=== PATIENT | female | born 1980 | race Caucasian/White ===

== ENCOUNTER 2018-09-25 02:39 | Emergency (ER) | payer OTHER ==
[2018-09-25 03:01] VITALS: BMI 30.7
--- NOTE | 2018-09-25 03:07 | PDOC ---
History of Present Illness - General Chief Complaint: Shortness of Breath Stated Complaint: LEFT NECK/SHOULDER Time Seen by Provider: 09/25/18 03:06 Past History - Past Medical History Allergies/Adverse Reactions: Allergies Allergy/AdvReac Type Severity Reaction Status Date / Time No Known Allergies Allergy Verified 09/25/18 03:00 Home Medications: Ambulatory Orders Ibuprofen [Motrin -] 600 mg PO QID PRN #28 tablet 09/25/18 Lidocaine 5% Patch [Lidoderm -] 1 patch TP DAILY PRN #10 patch 09/25/18 COPD: No - Suicide/Smoking/Psychosocial Hx Smoking History: Never smoked *Physical Exam - Vital Signs Last Vital Signs Temp Pulse Resp BP Pulse Ox 98.1 F 112 H 20 141/98 99 09/25/18 02:58 09/25/18 02:58 09/25/18 02:58 09/25/18 02:58 09/25/18 02:58 ED Treatment Course - LABORATORY CBC & Chemistry Diagram: 09/25/18 04:00 09/25/18 04:00 Medical Decision Making - Medical Decision Making 37yo F with PMH of HTN (not currently taking medicines as they ran out) presenting with neck pain and shortness of breath. Patient states she went to bed with the same neck pain but she woke up around 1:20am with worsening pain, now rated 6/10. If she moves her neck, she will feel the pain. Patient reports having trouble breathing at that time as well. Denies chest pain or cough. Endorsing some nausea. Has had normal po intake. No hemoptysis, no recent surgical history, no recent immobilization, no hormone use, no history of DVT or PE. No fevers or chills. PCP: Dr. Esquivel (patient has never seen her, however) ROS: Constitutional: no fever, no chills HEENT: no throat pain, no dysphagia Cardiovascular: no chest pain, no palpitations Respiratory: no cough, +shortness of breath Gastrointestinal: no abdominal pain, +nausea Genitourinary: no dysuria, no hematuria Musculoskeletal: +neck pain, no leg pain Skin: no rash, no itching Neurologic: no headache, no weakness PE: General: Awake, alert, and fully oriented, in no acute distress Head: No signs of trauma Eyes: EOMI, sclera anicteric ENT: Moist mucus membranes Neck: Normal ROM, supple Lungs: Lungs clear, Normal breath sounds Cardio: Regular rhythm, S1 and S2 present Abdomen: Soft, nontender. No guarding, no rebound, no masses Extremities: Normal range of motion, Distal pulses present SKIN: Warm, Dry, normal turgor Neurologic: Cranial nerves II through XII grossly intact. Normal speech Back: Tender to palpation in upper trapezius along the right, no midline neck/ spine tenderness, no step-offs/deformities/fluctuance ED Courses/MDM: DDX including but not limited to muscle strain, PNA, PE, dehydration Fluids, Toradol, Lidocaine Patch, Flexeril, Zofran Vitals significant for tachycardia EKG: rate 119, QTc 447, Sinus tachycardia 09/25/18 03:07 Patient has not yet given us a urine sample; added-on b-hcg qualitative; notified lab 09/25/18 04:39 Lab notification received that D-dimer tube does not have enough blood to be processed; re-ordered, drawn, and sent CBC WBC 4.9 K/mm3 (4.0-10.0) 09/25/18 04:00 RBC 4.95 M/mm3 (3.60-5.2) 09/25/18 04:00 Hgb 14.3 GM/dL (10.7-15.3) 09/25/18 04:00 Hct 41.1 % (32.4-45.2) 09/25/18 04:00 MCV 83.1 fl (80-96) 09/25/18 04:00 MCH 28.9 pg (25.7-33.7) 09/25/18 04:00 MCHC 34.8 g/dl (32.0-36.0) 09/25/18 04:00 RDW 13.7 % (11.6-15.6) 09/25/18 04:00 Plt Count 288 K/MM3 (134-434) 09/25/18 04:00 MPV 8.2 fl (7.5-11.1) 09/25/18 04:00 Absolute Neuts (auto) 2.6 K/mm3 (1.5-8.0) 09/25/18 04:00 Neutrophils % 53.5 % (42.8-82.8) 09/25/18 04:00 Lymphocytes % 34.4 % (8-40) 09/25/18 04:00 Monocytes % 10.4 % (3.8-10.2) H 09/25/18 04:00 Eosinophils % 1.3 % (0-4.5) 09/25/18 04:00 Basophils % 0.4 % (0-2.0) 09/25/18 04:00 Nucleated RBC % 0 % (0-0) 09/25/18 04:00 No leukocytosis CMP Sodium 140 mmol/L (136-145) 09/25/18 04:00 Potassium 4.6 mmol/L (3.5-5.1) 09/25/18 04:00 Chloride 106 mmol/L (98-107) 09/25/18 04:00 Carbon Dioxide 25 mmol/L (21-32) 09/25/18 04:00 Anion Gap 9 MMOL/L (8-16) 09/25/18 04:00 BUN 9.5 mg/dL (7-18) 09/25/18 04:00 Creatinine 0.5 mg/dL (0.55-1.3) L 09/25/18 04:00 Est GFR (CKD-EPI)AfAm 144.31 09/25/18 04:00 Est GFR (CKD-EPI)NonAf 124.51 09/25/18 04:00 Random Glucose 104 mg/dL (74-106) 09/25/18 04:00 Calcium 9.3 mg/dL (8.5-10.1) 09/25/18 04:00 Total Bilirubin 0.5 mg/dL (0.2-1) 09/25/18 04:00 AST 31 U/L (15-37) 09/25/18 04:00 ALT 21 U/L (13-61) 09/25/18 04:00 Alkaline Phosphatase 69 U/L (45-117) 09/25/18 04:00 Total Protein 7.4 g/dl (6.4-8.2) 09/25/18 04:00 Albumin 3.5 g/dl (3.4-5.0) 09/25/18 04:00 Electrolytes unremarkable Normal Cr Pending B-hcg qualitative and D-Dimer 09/25/18 05:08 CMP Sodium 140 mmol/L (136-145) 09/25/18 04:00 Potassium 4.6 mmol/L (3.5-5.1) 09/25/18 04:00 Chloride 106 mmol/L (98-107) 09/25/18 04:00 Carbon Dioxide 25 mmol/L (21-32) 09/25/18 04:00 Anion Gap 9 MMOL/L (8-16) 09/25/18 04:00 BUN 9.5 mg/dL (7-18) 09/25/18 04:00 Creatinine 0.5 mg/dL (0.55-1.3) L 09/25/18 04:00 Est GFR (CKD-EPI)AfAm 144.31 09/25/18 04:00 Est GFR (CKD-EPI)NonAf 124.51 09/25/18 04:00 Random Glucose 104 mg/dL (74-106) 09/25/18 04:00 Calcium 9.3 mg/dL (8.5-10.1) 09/25/18 04:00 Total Bilirubin 0.5 mg/dL (0.2-1) 09/25/18 04:00 AST 31 U/L (15-37) 09/25/18 04:00 ALT 21 U/L (13-61) 09/25/18 04:00 Alkaline Phosphatase 69 U/L (45-117) 09/25/18 04:00 Total Protein 7.4 g/dl (6.4-8.2) 09/25/18 04:00 Albumin 3.5 g/dl (3.4-5.0) 09/25/18 04:00 Serum , Qual Negative 09/25/18 04:00 Electrolytes unremarkable test negative D-Dimer elevated, 893. CTA chest ordered to r/o PE Patient reporting improved neck pain. No shortness of breath currently. 09/25/18 05:41 Pending add-on orders for BNP, Tpn, and TSH 09/25/18 06:18 CT as read by imaging application support technician is without acute pathology, "EXAM: CTA CHEST No pulmonary embolism. No aortic dissection or aneurysm. No pneumonia or pleural effusions. Small anterior mediastinal soft tissue, possbily thymic." 09/25/18 06:20 BNP, Tpn, TSH normal Patient discharged with return precautions 09/25/18 06:51 *DC/Admit/Observation/Transfer Diagnosis at time of Disposition: Shortness of breath, Neck pain - Discharge Dispostion Disposition: HOME Condition at time of disposition: Improved - Prescriptions Prescriptions: Ibuprofen [Motrin -] 600 mg PO QID PRN #28 tablet PRN Reason: Pain Lidocaine 5% Patch [Lidoderm -] 1 patch TP DAILY PRN #10 patch PRN Reason: Pain - Referrals Referrals: Karla Esquivel [Primary Care Provider] [place] [facility] [place] [facility] [place] Group] - Patient Instructions Printed Discharge Instructions: DI for Shortness of Breath, DI for Neck Pain Additional Instructions: You came to the ED for neck pain and trouble breathing. Labs and EKG did not indicate acute pathology. We did a CT scan of your chest which did not show a blood clot. Prescriptions sent to your pharmacy. Take as instructed. You can also take [id number] tylenol for your pain. Follow the instructions on the medication bottle. Follow-up with a primary care provider in the next 72 hours to discuss this ED visit and to further evaluate your symptoms. Your workup is not complete until you do so. You have been referred to the [facility] in case you do not have a primary care doctor. Call and make an appointment at the number provided. Immediate medical attention is required if you experience: severe headache, have a seizure, have focal numbness or weakness, chest pain, shortness of breath , or any new or concerning symptoms. If you think you are having an emergency, call for emergency medical services or present to the emergency department right away. === Llegaste al servicio de urgencias por dolor de randy y problemas para respirar. Los laboratorios y el ECG no indicaron patologa aguda. Hicimos chris tomografa computarizada de conner pecho que no mostr un cogulo de david. Recetas enviadas a conner farmacia. Tmelo segn las instrucciones. [place] puede ines tylenol de venta tiffani para el dolor. Siga las instrucciones en la botella del medicamento. Tomás un seguimiento con un proveedor de atencin primaria en las prximas 72 horas para analizar esta visita al servicio de urgencias y evaluar mejor fern sntomas. Conner trabajo no est completo hasta que lo tomás. Lo rinaldi derivado a la [place] en opal de que no tenga un mdico de atencin primaria. Llame y tomás chris joão al nmero provisto. Se requiere atencin mdica inmediata si experimenta: dolor de otilio intenso, convulsiones, entumecimiento o debilidad focal, dolor en el pecho, falta de aliento o cualquier sntoma nuevo o preocupante. Si oswaldo que est teniendo chris emergencia, llame a los servicios mdicos de emergencia o presntese de inmediato en el departamento de emergencias. Print Language: [id number] - Post Discharge Activity Forms/Work/School Notes: Back to Work
[2018-09-25] MEDS ORDERED: CYCLOBENZAPRINE HCL 10 MG TABLET (FP) PO ONE (03:34)
[2018-09-25] MEDS ORDERED: SODIUM CHLORIDE 1,000 ML IV STA (03:34)
[2018-09-25] MEDS ORDERED: KETOROLAC TROMETHAMINE 30 MG/1 ML VIAL IVPUSH ONE (03:34)
[2018-09-25] MEDS ORDERED: ONDANSETRON 4 MG/2 ML VIAL IVPUSH ONE (03:34)
[2018-09-25] MEDS ORDERED: LIDOCAINE 5% TOPICAL PATCH TP ONE (03:37)
[2018-09-25] MEDS ORDERED: CYCLOBENZAPRINE HCL 10 MG TABLET (FP) ONE (04:30)
[2018-09-25] MEDS ORDERED: LIDOCAINE 5% TOPICAL PATCH ONE (04:30)
[2018-09-25] MEDS ORDERED: KETOROLAC TROMETHAMINE 30 MG/1 ML VIAL ONE (04:30)
[2018-09-25] MEDS ORDERED: ONDANSETRON 4 MG/2 ML VIAL ONE (04:31)
[2018-09-25 04:38] LABS: BASO % 0.4 % (0-2.0); EOS % 1.3 % (0-4.5); HEMATOCRIT 41.1 % (32.4-45.2); HEMOGLOBIN 14.3 GM/dL (10.7-15.3); LYMPH % 34.4 % (8-40); MCH 28.9 pg (25.7-33.7); MCHC 34.8 g/dl (32.0-36.0); MEAN CELL VOLUME 83.1 fl (80-96); MEAN PLT VOLUME 8.2 fl (7.5-11.1); MONO % 10.4 % (3.8-10.2); NEUT % 53.5 % (42.8-82.8); PLATELET COUNT 288 K/MM3 (134-434); RBC 4.95 M/mm3 (3.60-5.2); RDW 13.7 % (11.6-15.6); WHITE BLOOD COUNT 4.9 K/mm3 (4.0-10.0)
[2018-09-25 04:57] LABS: ALBUMIN 3.5 g/dl (3.4-5.0); ALK PHOS 69 U/L (45-117); ANION GAP 9 MMOL/L (8-16); BILIRUBIN,TOTAL 0.5 mg/dL (0.2-1); BLOOD UREA NITROGEN 9.5 mg/dL (7-18); CALCIUM 9.3 mg/dL (8.5-10.1); CHLORIDE 106 mmol/L (98-107); CO2 25 mmol/L (21-32); CREATININE 0.5 mg/dL (0.55-1.3); GLUCOSE,RANDOM 104 mg/dL (74-106); POTASSIUM 4.6 mmol/L (3.5-5.1); SGOT/AST 31 U/L (15-37); SGPT/ALT 21 U/L (13-61); SODIUM 140 mmol/L (136-145); TOT PROT 7.4 g/dl (6.4-8.2)
[2018-09-25 06:25] VITALS: BP 121/81; PULSE 121; TEMP 98.7
--- NOTE | 2018-09-25 06:28 | PDOC ---
Documentation entered by Maureen Lujan SCRIBE, acting as scribe for Antonietta Stanley DO. Antonietta Stanley DO: This documentation has been prepared by the Tai marrero Brenda, SCRIBE, under my direction and personally reviewed by me in its entirety. I confirm that the documentation accurately reflects all work , treatment, procedures, and medical decision making performed by me. Attending Attestation - Resident Resident Name: TiaraYessyAddis - ED Attending Attestation I have performed the following: I have examined & evaluated the patient, The case was reviewed & discussed with the resident, I agree w/resident's findings & plan, Exceptions are as noted - HPI HPI: 09/25/18 05:13 The patient is a 37 year old female, with a significant PMH of HTN(medication ran out) who presents to the emergency department with shortness of breath, accompanied by neck pain. Patient reports falling asleep with the neck pain, and waking up around 1:20am with a worsened pain, aggravated by movement. She also notes having trouble breathing around the same time, and also endorses nausea. The patient denies chest pain, headache and dizziness. Denies fever, chills, vomiting, diarrhea and constipation. Denies dysuria, frequency, urgency and hematuria. Allergies: NKA Social history: Denies any tobacco use. PCP: Dr. Esquivel - Physicial Exam PE: 09/25/18 03:17 Agree with resident's exam. - Medical Decision Making 09/25/18 19:55 37 old female with reproducible left upper back pain now with some shortness of breath CAT of the chest was negative for pulmonary embolism Examination history most consistent with musculoskeletal cause Will DC with recommended outpatient follow-up
[2018-09-25 06:34] LABS: N-TERMINAL BNP 18.6 pg/ml (5-125)
--- NOTE | 2018-09-25 13:30 | EKG ---
Test Reason : Blood Pressure : / mmHG Vent. Rate : 119 BPM Atrial Rate : 119 BPM P-R Int : 144 ms QRS Dur : 078 ms QT Int : 318 ms P-R-T Axes : 043 024 054 degrees QTc Int : 447 ms SINUS TACHYCARDIA OTHERWISE NORMAL ECG NO PREVIOUS ECGS AVAILABLE Confirmed by MACKENZIE ELLIOTT MD ([id number]) on 09/25/2018 1:29:31 PM Referred By: Confirmed By:MACKENZIE ELLIOTT MD
[2018-09-25] MEDS ORDERED: LIDOCAINE PATCH REMOVAL MC SCH (22:00)
== END 2018-09-25 07:26 | disposition home or self-care (01) ==
LOC: JER 02:39
PROC: 3E033GC Introduction of Other Therapeutic Substance into Peripheral Vein, Percutaneous Approach (ICD-10-PCS; principal; 2018-09-25)
PROC: 3E0333Z Introduction of Anti-inflammatory into Peripheral Vein, Percutaneous Approach (ICD-10-PCS; 2018-09-25)
DX: M54.2 Cervicalgia (principal); R06.02 Shortness of breath
CPT/HCPCS: 36415; 71275-TC; 80053; 83880; 84443; 84484; 84703; 85025; 85379; 93005; 93010; 99283-25; J7030